=== PATIENT | male | born 1960 | race Caucasian/White ===

== ENCOUNTER 2023-09-01 06:11 | Day surgery (SDC) | payer OTHER ==
[~2023-09-01] VITALS: Ht 182.9 cm; Wt 99.1 kg
[~2023-09-01 06:11] MED LIST: Lactated Ringer's 1,000 ML IV ONE
[2023-09-01] MEDS ORDERED: NS 50 ML IV ONE (06:31)
[2023-09-01] MEDS ORDERED: CeFAZolin Sodium 2,000 MG VIAL ONE (06:31)
[2023-09-01] MEDS ORDERED: Lactated Ringer's 1,000 ML IV ONE (06:50)
[2023-09-01] MEDS ORDERED: SILD50TA PO (06:52)
[2023-09-01] MEDS ORDERED: ALBU90OI INH (06:52)
[2023-09-01] MEDS ORDERED: OMEP20ER PO (06:52)
[2023-09-01] MEDS ORDERED: Flonase 0.05% N16 GM (06:53)
[2023-09-01] MEDS ORDERED: THERA-D2000 UNIT PO (06:53)
[2023-09-01] MEDS ORDERED: NAPR220 PO (06:54)
[2023-09-01] MEDS ORDERED: Lidocaine 2%-Epineph 1:200000 20 ML SDV ONE (06:57)
[2023-09-01] MEDS ORDERED: propofoL 20 ML IV ONE (07:01)
[2023-09-01] MEDS ORDERED: FentaNYL Citrate 50 MCG/ML 2 ML Injection ONE ×5 (07:01→09:49)
[2023-09-01] MEDS ORDERED: Lidocaine 1%-Epineph 1:100000 20 ML MDV ONE (07:04)
[2023-09-01] MEDS ORDERED: Lidocaine 2%-Epineph 1:100000 20 ML MDV ONE (07:11)
[2023-09-01] MEDS ORDERED: Ipratropium/Albuterol SulF 2.5-0.5MG/3 ML Amp ONE (07:11)
[2023-09-01] MEDS ORDERED: Phenylephrine HCl 100 MCG/ML-NS 10MLSYR (1MG/10ML) ONE (07:54)
[2023-09-01] MEDS ORDERED: EPINEPhrine HCl 1 MG/ML 1ML Amp XX ONE (07:58)
[2023-09-01] MEDS ORDERED: Ketorolac Tromethamine 30mg Vial ONE (09:20)
[2023-09-01] MEDS ORDERED: OxyCODONE HCL 5 MG TAB ONE (09:39)
[2023-09-01] MEDS ORDERED: Labetalol HCL 5 MG/ML 4ML Injection (Single Dose) ONE (10:30)
--- NOTE | 2023-09-01 14:13 | NUR ---
09/01/23 1413 Sharon Montalvo NOTED ECCHYMOSIS TO PTS RIGHT THIGH AFTER REMOVAL OF U DRAPE, DR COX AWARE
[2023-09-04 10:04] VITALS: BP 129/63
--- NOTE | 2023-09-04 10:14 | NUR ---
09/04/23 1014 TOM MORENO LATE CHARTING ENTRY D/T COMPUTER SYSTEM BEING DOWN FACILITY WIDE MEDICATION RECORD IS FOLLOWS: 09-01-23 0925 TORADOL 30 MG IV FLAC 0/10, GIVEN PER ANESTHESIA 09-01-23 0945 OXYCODONE 5 MG PO, 6/10 PAIN ADM BY [email or web address] 09-01-23 0955 FENTANYL 25 MCG IV, 7/10 PAIN ADM BY [email or web address] 09-01-23 1040 LABETALOL 10 MG IV, ADM BY [email or web address] FOR HTN 1004 PT REPORTS PAIN IS TOLERABLE AT 4.5/10. HE APPEARS CALM AND TALKATIVE 1025 WAS CONSULTED REGARDING PATIENT'S ELEVATED BP, ORDER RECEIVED FOR LABETALOL 10MG IV - SEE ANESTHESIA ORDERS 1038 PT STATES PAIN IS 4/10, STILL TOLERABLE 1105 PT VOIDED 400 ML CLEAR, YELLOW URINE. 1107 PT REPORTS TOLERABLE 3/10 PAIN AND EXPRESSES READINESS TO RETURN HOME. 1112 DR. GUY CONSULTED AGAIN REGARDING PATIENT'S HTN, OK TO DC HOME BP 141/80, O2 95 %, HR 76, RR20
== END 2023-09-01 11:25 | disposition home or self-care (01) ==
LOC: ORSCSDS 06:11
PROVIDERS: Orthopaedic Surgery
PROC: 0SBC4ZZ Excision of Right Knee Joint, Percutaneous Endoscopic Approach (ICD-10-PCS; principal; 2023-09-01 07:30)
DX: S83.241D Other tear of medial meniscus, current injury, right knee, subsequent encounter (principal); S83.241A Other tear of medial meniscus, current injury, right knee, initial encounter; J44.9 Chronic obstructive pulmonary disease, unspecified; G47.33 Obstructive sleep apnea (adult) (pediatric); K21.9 Gastro-esophageal reflux disease without esophagitis
CPT/HCPCS: A9270; J0171; J0690; J1885; J2371; J2704; J3010; J7120